=== PATIENT | female | born 1950 | race Caucasian/White ===

== ENCOUNTER → 2016-11-08 | Outpatient (CLI) | payer BC ==
[~2016-11-08] MED LIST: CYMBALTA 30MG30 MG PO; DEXILANT60 MG PO; IBU800 M1 PO; ULTRAM 50MG TAB50 MG PO; ZOFRAN8 MG PO
== END ==
LOC: MHCPAIN 11:03
DX: G89.29 Other chronic pain (principal); M47.817 Spondylosis without myelopathy or radiculopathy, lumbosacral region; M54.2 Cervicalgia
CPT/HCPCS: G0463

== ENCOUNTER → 2017-01-27 | Outpatient (CLI) | payer BC | LOC: MHCPAIN 11:10 | DX: G89.29 Other chronic pain (principal); M47.817 Spondylosis without myelopathy or radiculopathy, lumbosacral region | CPT/HCPCS: G0463 ==

== ENCOUNTER 2017-02-01 19:27 | Emergency (ER) | payer BC ==
[~2017-02-01] VITALS: Ht 162.6 cm; Wt 92.7 kg
[2017-02-01 19:31] VITALS: TEMP 99.4
[2017-02-01 19:53] LABS: BASO # 0.1 (0.0-0.2); BASO % 0.7 % (0.0-2.0); EOS # 0.3 (0.0-0.7); EOS % 4.1 % (0-4.0); GRAN # 3.8 (1.4-6.5); GRAN % 52.1 % (42.2-75.2); HEMATOCRIT 41.5 % (37.0-47.0); HEMOGLOBIN 14.1 g/dl (12.5-16.0); LYMPH # 2.5 (1.2-3.4); LYMPH % 34.1 % (20.0-51.0); MEAN CELL VOLUME 95 fl (80.0-100.0); MEAN CORPUSCULAR HEMOGLOBIN 32 pg (27.0-31.0); MEAN CORPUSCULAR HGB CONC 34 g/dl (33.0-37.0); MONO # 0.6 (0.1-0.6); MONO % 8.7 % (1.7-9.3); PLATELET COUNT 258 K/mm3 (130-400); RED BLOOD COUNT 4.36 M/mm3 (4.10-5.30); WHITE BLOOD COUNT 7.3 K/mm3 (4.8-10.8)
[2017-02-01] MEDS ORDERED: ULTRAM 50MG TAB50 MG PO (19:55)
[2017-02-01] MEDS ORDERED: CYMBALTA 30MG30 MG PO (19:55)
[2017-02-01] MEDS ORDERED: DEXILANT60 MG PO (19:56)
[2017-02-01] MEDS ORDERED: IBU800 M1 PO (19:56)
[2017-02-01 20:04] LABS: ANION GAP 15 mmol/L (7-16); BLOOD UREA NITROGEN 19 mg/dL (7-17); CALCIUM 9.5 mg/dL (8.4-10.2); CARBON DIOXIDE 25 mmol/L (22-30); CHLORIDE 103 mmol/L (98-107); GLUCOSE 139 mg/dL (74-106); POTASSIUM 3.4 mmol/L (3.4-5.0); SODIUM 144 mmol/L (137-145)
[2017-02-01 20:16] LABS: B-TYPE NATRIURETIC PEPTIDE 420 pg/mL (0-125)
[2017-02-01 20:24] LABS: TROPONIN-I < 0.012 ng/mL (0.000-0.034)
[2017-02-01] MEDS ORDERED: ZOFRAN8 MG PO (20:53)
[2017-02-01 22:45] VITALS: BP 151/87; PULSE 61
== END 2017-02-01 22:51 | disposition home or self-care (01) ==
LOC: COL.ER 19:27
PROVIDERS: Emergency Medicine
DX: I10 Essential (primary) hypertension (principal); R00.2 Palpitations; R53.81 Other malaise; E11.9 Type 2 diabetes mellitus without complications; Z90.49 Acquired absence of other specified parts of digestive tract; Z90.710 Acquired absence of both cervix and uterus; Z87.891 Personal history of nicotine dependence
CPT/HCPCS: J2405; J7030

== ENCOUNTER → 2017-02-21 | Outpatient (CLI) | payer BC | LOC: COL.CARD 11:50 | DX: R00.2 Palpitations (principal); I10 Essential (primary) hypertension; R53.83 Other fatigue; R55 Syncope and collapse ==

== ENCOUNTER → 2017-04-25 | Outpatient (CLI) | payer BC | LOC: COL.LAB 13:52 | DX: I10 Essential (primary) hypertension (principal) ==

== ENCOUNTER → 2018-06-09 | Outpatient (CLI) | payer MEDICARE, BC | LOC: MC.RAD 11:24 | DX: Z12.31 Encounter for screening mammogram for malignant neoplasm of breast (principal) ==

== ENCOUNTER 2018-07-07 22:53 | Emergency (ER) | payer MEDICARE, BC ==
[~2018-07-07] VITALS: Ht 162.6 cm; Wt 94.5 kg
[2018-07-07 22:57] VITALS: TEMP 98.2
[2018-07-07 23:24] LABS: BASO # 0.1 (0.0-0.2); BASO % 0.8 % (0.0-2.0); EOS # 0.1 (0.0-0.7); EOS % 1.7 % (0-4.0); GRAN # 3.6 (1.4-6.5); GRAN % 49.9 % (42.2-75.2); HEMATOCRIT 39.9 % (37.0-47.0); HEMOGLOBIN 13.5 g/dl (12.5-16.0); LYMPH # 2.7 (1.2-3.4); LYMPH % 37.8 % (20.0-51.0); MEAN CELL VOLUME 97 fl (80.0-100.0); MEAN CORPUSCULAR HEMOGLOBIN 33 pg (27.0-31.0); MEAN CORPUSCULAR HGB CONC 34 g/dl (33.0-37.0); MEAN PLATELET VOLUME 10.2 fl (7.4-10.4); MONO # 0.7 (0.1-0.6); MONO % 9.4 % (1.7-9.3); PLATELET COUNT 231 K/mm3 (130-400); RED BLOOD COUNT 4.13 M/mm3 (4.10-5.30); REDCELL DISTRIBUTION WIDTH-CV 13.1 % (11.5-14.5)
[2018-07-07] MEDS ORDERED: COZAAR 25MG25 MG/TAB PO (23:28)
[2018-07-07] MEDS ORDERED: ZANTAC 7575 MG PO (23:29)
[2018-07-07 23:30] LABS: PROTHROMBIN TIME 11.8 SECONDS (9.7-12.8)
[2018-07-07 23:35] LABS: ALANINE AMINOTRANSFERASE 26 U/L (9-52); ALBUMIN 4.4 gm/dL (3.5-5.0); ALKALINE PHOSPHATASE 97 U/L (50-136); ANION GAP 11 mmol/L (7-16); AST,SGOT 31 U/L (15-37); BILIRUBIN,TOTAL 0.9 mg/dL (0.0-1.0); BLOOD UREA NITROGEN 24 mg/dL (7-17); CALCIUM 9.3 mg/dL (8.4-10.2); CARBON DIOXIDE 24 mmol/L (22-30); CHLORIDE 102 mmol/L (98-107); CREATININE, serum 0.78 mg/dL (0.52-1.25); GLUCOSE 123 mg/dL (74-106); MAGNESIUM 1.6 mg/dL (1.6-2.3); POTASSIUM 3.4 mmol/L (3.4-5.0); SODIUM 136 mmol/L (137-145); TOTAL PROTEIN 8.3 gm/dL (6.4-8.2)
[2018-07-08] LABS: TROPONIN-I < 0.012 ng/mL (0.000-0.034)
[2018-07-08 01:06] VITALS: BP 159/82; PULSE 66
== END 2018-07-08 01:33 | disposition home or self-care (01) ==
LOC: COL.ER 22:53
PROVIDERS: Emergency Medicine
DX: I10 Essential (primary) hypertension (principal); K21.9 Gastro-esophageal reflux disease without esophagitis; M54.5 Low back pain; G89.29 Other chronic pain; Z79.891 Long term (current) use of opiate analgesic; Z87.891 Personal history of nicotine dependence
CPT/HCPCS: J7030

== ENCOUNTER 2019-04-25 04:39 | Emergency (ER) | payer MEDICARE, BC ==
[~2019-04-25] VITALS: Ht 162.6 cm; Wt 86.4 kg
[~2019-04-25 04:39] MED LIST changes: +COZAAR 25MG25 MG/TAB PO; +ZANTAC 7575 MG PO
[2019-04-25 04:40] VITALS: TEMP 97.5
[2019-04-25 05:29] VITALS: BP 106/69
[2019-04-25 06:18] LABS: BASO % 0.7 % (0.0-2.0); EOS # 0.1 (0.0-0.7); EOS % 2.3 % (0-4.0); GRAN # 3.4 (1.4-6.5); GRAN % 60.9 % (42.2-75.2); HEMOGLOBIN 11.1 g/dl (12.5-16.0); LYMPH # 1.5 (1.2-3.4); LYMPH % 27.3 % (20.0-51.0); MEAN CELL VOLUME 100 fl (80.0-100.0); MEAN CORPUSCULAR HEMOGLOBIN 32 pg (27.0-31.0); MEAN CORPUSCULAR HGB CONC 32 g/dl (33.0-37.0); MEAN PLATELET VOLUME 10.6 fl (7.4-10.4); MONO # 0.5 (0.1-0.6); MONO % 8.6 % (1.7-9.3); PLATELET COUNT 168 K/mm3 (130-400); RED BLOOD COUNT 3.45 M/mm3 (4.10-5.30); REDCELL DISTRIBUTION WIDTH-CV 12.3 % (11.5-14.5)
[2019-04-25 06:19] LABS: HEMATOCRIT 34.6 % (37.0-47.0)
[2019-04-25 06:25] LABS: ALANINE AMINOTRANSFERASE 16 U/L (9-52); ALBUMIN 3.4 gm/dL (3.5-5.0); ALKALINE PHOSPHATASE 83 U/L (50-136); ANION GAP 6 mmol/L (7-16); AST,SGOT 21 U/L (15-37); BILIRUBIN,TOTAL 0.4 mg/dL (0.0-1.0); BLOOD UREA NITROGEN 17 mg/dL (7-17); CALCIUM 8.8 mg/dL (8.4-10.2); CARBON DIOXIDE 25 mmol/L (22-30); CHLORIDE 110 mmol/L (98-107); CREATININE, serum 0.65 (0.52-1.25); GLUCOSE 97 mg/dL (74-106); POTASSIUM 3.7 mmol/L (3.4-5.0); SODIUM 142 mmol/L (137-145); TOTAL PROTEIN 6.2 gm/dL (6.4-8.2)
[2019-04-25 06:28] LABS: ACETAMINOPHEN < 10 ug/mL (10-30); ALCOHOL(ethanol),MEDICAL < 10 mg/dL; SALICYLATE < 1.0 mg/dL
[2019-04-25 09:23] LABS: COLLECTION METHOD CLEAN CATCH
[2019-04-25 09:31] LABS: MUCOUS Present /lpf; PH 5 (5-8); SQUAMOUS EPITHELIAL 0-2 /hpf; URINE APPEARANCE Hazy; URINE BACTERIA Rare /hpf; URINE BILIRUBIN Negative (NEGATIVE); URINE BLOOD Negative (NEGATIVE); URINE COLOR Yellow; URINE GLUCOSE Negative (NEGATIVE); URINE KETONE Negative (NEGATIVE); URINE LEUKOCYTE ESTERASE 3+ (NEGATIVE); URINE NITRATE Negative (NEGATIVE); URINE PROTEIN(semi-quant) Negative (NEGATIVE); URINE UROBILINOGEN Negative (NEGATIVE)
[2019-04-25 09:39] LABS: TRICYCLIC ANTIDEPRESS URINE NEGATIVE
[2019-04-25] MEDS ORDERED: MEDROL 4MG DOSPA4 MG PO (09:47)
[2019-04-25 10:27] VITALS: PULSE 68
== END 2019-04-25 10:27 | disposition home or self-care (01) ==
LOC: COL.ER 04:39
PROVIDERS: Emergency Medicine
DX: R46.4 Slowness and poor responsiveness (principal); I10 Essential (primary) hypertension; G47.00 Insomnia, unspecified; Z90.710 Acquired absence of both cervix and uterus; Z90.49 Acquired absence of other specified parts of digestive tract
CPT/HCPCS: J7030

== ENCOUNTER → 2019-05-17 | Outpatient (CLI) | payer MEDICARE, BC ==
--- NOTE | 2019-05-14 09:00 | NUR ---
CALLED AND LEFT MSG ON MACHINE FOR HER TO CALL US BACK. LEFT TIME AND DATE FOR PROCEDURE
[~2019-05-17] VITALS: Ht 162.6 cm; Wt 88.8 kg
[~2019-05-17] MED LIST changes: +LEVOXYL0.1 MG PO; +MEDROL 4MG DOSPA4 MG PO; +NEURONTIN100 MG/CAP PO
[2019-05-17 09:37] VITALS: BP 121/72; PULSE 55
== END ==
LOC: COL.CARD 09:13
DX: R07.89 Other chest pain (principal)
CPT/HCPCS: A9500

== ENCOUNTER → 2019-08-16 | Outpatient (CLI) | payer MEDICARE, BC | LOC: MC.RAD 07:05 | DX: Z12.31 Encounter for screening mammogram for malignant neoplasm of breast (principal) ==

== ENCOUNTER → 2020-08-29 | Outpatient (CLI) | payer MEDICARE, BC | LOC: MC.RAD 08-17 14:30 | DX: Z12.31 Encounter for screening mammogram for malignant neoplasm of breast (principal) ==

== ENCOUNTER 2020-12-01 09:56 | Day surgery (SDC) | payer MEDICARE, BC ==
[~2020-12-01] VITALS: Ht 162.6 cm; Wt 98.5 kg
[2020-12-01 10:21] VITALS: BP 110/86; PULSE 67; TEMP 97.5
[2020-12-01] MEDS ORDERED: PROTONIX 40MG T40 MG PO (10:26)
[2020-12-01] MEDS ORDERED: LIDOCAINE HCL100 M1 MM (10:26)
[2020-12-01] MEDS ORDERED: ZOFRAN 4MG T4 MG/TAB PO (10:27)
[2020-12-01] MEDS ORDERED: SYNTHROID0.075 MG/T PO (10:27)
[2020-12-01] MEDS ORDERED: MACROBID 1100 MG/CAP PO (10:27)
[2020-12-01] MEDS ORDERED: COZAAR 25MG25 MG/TAB PO (10:27)
[2020-12-01] MEDS ORDERED: HALCION0.25 MG PO (10:28)
[2020-12-01] MEDS ORDERED: VALTREX1 GM PO (10:28)
[2020-12-01] MEDS ORDERED: FLEXERIL 1010 MG/TAB PO (10:28)
[2020-12-01] MEDS ORDERED: ZTLIDO1 EACH TP (10:29)
[2020-12-01] MEDS ORDERED: PROAIR HFA0.09 MG/AC IH (10:29)
[2020-12-01] MEDS ORDERED: NEURONTIN300 MG/CAP PO (10:30)
[2020-12-01 11:35] VITALS: BP 98/69; PULSE 60; TEMP 98.5
--- NOTE | 2020-12-01 11:35 | NUR ---
Patient arrives back to [facility] alert, denies pain or nausea. Patient ambulated from cart to chair with standby assist and without any complications. Patient montior applied, vitals stable. Patient drinking water.
[2020-12-01 11:45] VITALS: BP 116/76; PULSE 58
--- NOTE | 2020-12-01 11:50 | NUR ---
Patient tolerated water well and denies nausea.
--- NOTE | 2020-12-01 12:10 | NUR ---
Dismissal instructions gone over with patient. Patient voices understanding and all questions answered.
--- NOTE | 2020-12-01 12:15 | NUR ---
Patient discharged to private vehicle at patient enterance via wheelchair without any complications. Patient leaves thanking staff for services.
== END 2020-12-01 12:15 | disposition home or self-care (01) ==
LOC: SDCO 09:56
DX: K22.0 Achalasia of cardia (principal); K21.9 Gastro-esophageal reflux disease without esophagitis; I10 Essential (primary) hypertension; E03.9 Hypothyroidism, unspecified; G47.33 Obstructive sleep apnea (adult) (pediatric); G47.00 Insomnia, unspecified; M79.605 Pain in left leg; M19.90 Unspecified osteoarthritis, unspecified site; Z20.822 Contact with and (suspected) exposure to COVID-19; Z87.891 Personal history of nicotine dependence; Z79.890 Hormone replacement therapy; Z79.899 Other long term (current) drug therapy; Z88.1 Allergy status to other antibiotic agents; Z88.6 Allergy status to analgesic agent; Z79.891 Long term (current) use of opiate analgesic
CPT/HCPCS: J0585; J2704; J7030

== ENCOUNTER → 2021-10-10 | Outpatient (CLI) | payer MEDICARE, BC ==
[~2021-10-10] MED LIST changes: +FLEXERIL 1010 MG/TAB PO; +HALCION0.25 MG PO; +LIDOCAINE HCL100 M1 MM; +MACROBID 1100 MG/CAP PO; +NEURONTIN300 MG/CAP PO; +PROAIR HFA0.09 MG/AC IH; +PROTONIX 40MG T40 MG PO; +SYNTHROID0.075 MG/T PO; +VALTREX1 GM PO; +ZOFRAN 4MG T4 MG/TAB PO; +ZTLIDO1 EACH TP
== END ==
LOC: MC.RAD 13:00
DX: Z12.31 Encounter for screening mammogram for malignant neoplasm of breast (principal)

== ENCOUNTER 2021-11-22 08:36 | Outpatient (CLI) | payer MEDICARE, BC ==
[~2021-11-22] VITALS: Ht 162.7 cm; Wt 98.0 kg
[2021-11-22] MEDS ORDERED: DEXILANT60 MG PO (09:12)
[2021-11-22 09:26] VITALS: BP 183/65; PULSE 50; TEMP 98
[2021-11-22] MEDS ORDERED: COZAAR 25MG25 MG/TAB PO (10:34)
[2021-11-22 10:50] VITALS: BP 160/108; PULSE 50
--- NOTE | 2021-11-22 11:09 | NUR ---
Discharge instructions given to pt.Pt verbalizes understanding.INT removed,catheter tip intact.Pt discharged ambulatory with student nurse.
== END 2021-11-22 11:29 ==
LOC: COL.CAR 08:36
DX: R42 Dizziness and giddiness (principal); G47.30 Sleep apnea, unspecified; K21.9 Gastro-esophageal reflux disease without esophagitis; I10 Essential (primary) hypertension; I95.1 Orthostatic hypotension; G47.00 Insomnia, unspecified; E66.01 Morbid (severe) obesity due to excess calories; E03.9 Hypothyroidism, unspecified; M54.16 Radiculopathy, lumbar region; F41.9 Anxiety disorder, unspecified

== ENCOUNTER 2021-12-24 10:03 | Day surgery (SDC) | payer MEDICARE, BC ==
[~2021-12-24] VITALS: Ht 162.6 cm; Wt 95.5 kg
[2021-12-24] VITALS (15 sets, daily range): BP systolic 110–175; BP diastolic 58–97; PULSE 51–63; TEMP 97.6–98.3
[2021-12-24 10:28] LABS: HEMOGLOBIN 12.8 g/dl (12.5-16.0); MEAN CELL VOLUME 97 fl (80.0-100.0); MEAN CORPUSCULAR HEMOGLOBIN 32 pg (27-31); MEAN CORPUSCULAR HGB CONC 33 g/dl (33.0-37.0); MEAN PLATELET VOLUME 10.8 fl (7.4-10.4); PLATELET COUNT 209 K/mm3 (130-400); RED BLOOD COUNT 4.02 M/mm3 (4.10-5.30)
[2021-12-24 10:59] LABS: CALCIUM 9.1 mg/dL (8.4-10.2); CREATININE, serum 0.99 mg/dL (0.57-1.11); POTASSIUM 3.8 mmol/L (3.5-4.5)
[2021-12-24 11:00] LABS: PROTHROMBIN TIME 11.4 SECONDS (9.7-12.8)
[2021-12-24 11:03] LABS: PARTIAL THROMBOPLASTIN TIME 29.5 SECONDS (26.0-37.0)
--- NOTE | 2021-12-24 12:10 | NUR ---
PT TAKEN DOWN TO BOTTLE WASHING MACHINE OPERATOR. PT WILL THEN TRANSFER TO ROOM 310.
--- NOTE | 2021-12-24 12:29 | NUR ---
See merge for all medication, assessment, intervention, and vital sign time.
--- NOTE | 2021-12-24 14:15 | NUR ---
PT RECEIVED FROM EDUCATIONAL ADMINISTRATION TEACHER. SITES CHECKED. VITALS TAKEN.
--- NOTE | 2021-12-24 14:45 | NUR ---
TR BAND FILLED WITH 12 CC'S. NO BLEEDING AT SITE. CIRCULATION INTACT. PT REPORTS FINGER SENSATION. PACEMAKER SITE COVERED WITH DRESSING. NO BLEEDING NOTES. PT DENIES PAIN AT SITE. EDUCATED PT TO NOT LIFT ARM OVER HEAD AND TO NOT ROTATE THE ARM. ICE PACK APPLIED TO SITE.
--- NOTE | 2021-12-24 15:15 | NUR ---
RADIAL SITE HAS NO BLEEDING. CIRCULATION INTACT. PT REPORTS SENSATION. 12 CC'S OF AIR IN TR BAND. PACERMAKER SITE CLEAN AND DRY. NO PAIN OR BLEEDING. RADIAL PULSE 2+ BILATERALLY.
--- NOTE | 2021-12-24 16:06 | NUR ---
RADIAL SITE CLEAN AND DRY NO BLEEDING. WILL REMOVE 2 CC'S OF AIR FROM CUFF. 2+ RADIAL PULSE. PACEMAKER SITE CLEAN AND DRY. PT REPORTS 3/10 PAIN AT PACEMAKER SITE. ICE REMAINS APPLIED. VITAL SIGNS STABLE. WILL CONTINUE TO MONITOR.
--- NOTE | 2021-12-24 18:03 | NUR ---
NOTED SOME LIGHT DRAINAGE AROUND TR BAND SITE. 3 ML'S ADDED BACK INTO BAND. WILL CONTINUE TO MONITOR.
--- NOTE | 2021-12-24 18:26 | NUR ---
RADIAL SITE CLEAN AND DRY. NO NEW LEAKAGE. 8 MLS REMAIN IN THE CUFF STILL. 2+ RADIAL PULSE. MINOR BRUISING AT SITE BUT SITE IS SOFT. PT DENIES PAIN. PACEMAKER SITE CLEAN AND DRY. PT REPORTS PAIN WHEN BREATHING IN. ENCOURAGED ICING THE SPOT.
--- NOTE | 2021-12-24 19:38 | NUR ---
PT HAD UNPRODUCTIVE DAY. VITAL SIGNS REMAIN STABLE. RADIAL SITE STILL HAS MINOR BRUISING BELOW THE CUFF, BUT IS SOFT AND NONTENDER. NO NEW LEAKAGE. PACERMAKER DRESSING DRY AND INTACT. ARM REMAINS IN SLING. PT ATE DINNER. IS RESTING COMFORTABLY NOW. PT REPORTS NO QUESTIONS AT THIS TIME. REMAINS ALERT AND ORIENTED. NO CONCERNS AT THIS TIME.
--- NOTE | 2021-12-24 23:16 | NUR ---
AT 1925 5CC OF AIR RELEASED FROM TR BAND, AT 2030 REMAINING 3 CC OF AIR REMOVED FROM TR BAND. R RADIAL SITE FREE OF HEMATOMA, HARDENING, CAPILLARY REFILL WNL, PT DENIES PARETHESISA. THIS NURSE REVIEWED WITH PT WHAT S/S TO REPORT. PT VERBALIZES UNDERSTANDING. PACEMAKER SITE SCANT BLEEDING CINDY NOTED FROM BED SIDE SHIFT REPORT. THIS NURSE WILL CONTINUE TO MONITOR.
[2021-12-25 00:04] VITALS: BP 133/56; PULSE 61; TEMP 98.3
--- NOTE | 2021-12-25 05:36 | NUR ---
PT PACEMAKER SITE HAS NO INCREASED BLEEDING SATURATION SINCE BEGINING OF SHIFT, RIGHT RADIAL SITE CAPILLARY REFILL WNL, PT DENIES PARETHESIA, NO HEMATOMA NOTED, VSS, 02 ROOM AIR, PT REPORTS GENERAL DISCOMFORT TO SITE. PACEMAKER DOWNLOAD COMPLETED. ALL NEEDS MET AT THIS TIME . CALL LIGHT WITHIN REACH.
[2021-12-25 08:13] VITALS: BP 125/43; PULSE 62; TEMP 97.8
--- NOTE | 2021-12-25 09:36 | NUR ---
Initial visit; Patient thanked Fur Buyer for looking in on her and was receptive to Fur Buyer keeping her in Fur [employer]er's prayers.
--- NOTE | 2021-12-25 10:58 | NUR ---
PT RESTING IN BED. MORNING MEDICATIONS GIVEN. SHIFT ASSESSMENT COMPLETED. PT COMPLAINS OF MILD PAIN AT THE SITE OF ICD PLACEMENT. SLING ON AT THIS TIME. R RADIAL SITE HAS BANDAID AND HAS A SMALL BRUISE. WILL CONTINUE TO MONITOR.
[2021-12-25 11:20] VITALS: BP 159/68; PULSE 60; TEMP 98
[2021-12-25] MEDS ORDERED: TOPROL XL 25MG25 MG PO (12:45)
[2021-12-25] MEDS ORDERED: CEPHALEXIN500 M1 PO (12:46)
--- NOTE | 2021-12-25 13:13 | NUR ---
IV D/C. DISCHARGE INSTRUCTIONS GIVEN, ALL QUESTIONS ANSWERED. WILL ESCORT PT DOWNSTAIRS WHEN RIDE ARRIVES.
== END 2021-12-25 14:03 | disposition home or self-care (01) ==
LOC: COL.CAR 10:03 → MEDICAL 14:28 → COL.CAR 12-25 14:03
PROVIDERS: Internal Medicine Cardiovascular Disease
DX: I49.5 Sick sinus syndrome (principal); I45.89 Other specified conduction disorders; I10 Essential (primary) hypertension; I25.10 Atherosclerotic heart disease of native coronary artery without angina pectoris; R94.39 Abnormal result of other cardiovascular function study; E66.01 Morbid (severe) obesity due to excess calories; Z79.82 Long term (current) use of aspirin; Z79.899 Other long term (current) drug therapy
CPT/HCPCS: OP; C1769; C1785; C1894; C1898; J0690; J1200; J1644; J2250; J3010; Q9967